=== PATIENT | male | born 1995 | race Caucasian/White ===

== ENCOUNTER 2017-10-05 06:47 | Emergency (ER) | payer OTHER ==
[2017-10-05 06:54] VITALS: O2SAT 98
[2017-10-05] MEDS ORDERED: ONDANSETRON 4 MG/2 ML VIAL IVP ONE (07:10)
[2017-10-05] MEDS ORDERED: PANTOPRAZOLE SODIUM 40 MG VIAL IVP ONE (07:10)
[2017-10-05] MEDS ORDERED: NS 1,000 ML IV ONE (07:10)
[2017-10-05] MEDS ORDERED: ONDANSETRON 4 MG/2 ML VIAL ONE (07:10)
--- NOTE | 2017-10-05 07:13 | EDPHY ---
H & P Stated Complaint: N/V, abd pain, black stool. Time Seen by Provider: 10/05/17 07:06 HPI/ROS: Chief Complaint: Nausea, vomiting, abdominal pain HPI: 22-year-old male presenting with 2-3 days of nausea, vague, upper abdominal pain. Patient states he had a very dark bowel movement this morning. Had a his similar symptoms the last 6 or 7 years. Has never seen a doctor for this before. Has been taking Pepto-Bismol without relief. No coffee grounds or blood in his vomit. Symptoms comes in waves. No fever chills. No chest pain or shortness of breath. Is about a 8/10 at worst. There are no aggravating or alleviating factors. He does smoke. Recently stops drinking, does use marijuana daily. ROS: 10 point Review of Systems is negative except as noted in the HPI. PMH: Denies Social History: No smoking, occasional alcohol, daily marijuana Family History: non-contributory Physical Exam: Gen: Awake, Alert, No Distress HEENT: Nose: no rhinorrhea Eyes: PERRLA, EOMI Mouth: Moist mucosa Neck: Supple, no JVD Chest: nontender, lungs clear to auscultation Heart: S1, S2 normal, no murmur Abd: Soft, moderate epigastric tenderness, no guarding Back: no CVA tenderness, no midline tenderness Ext: no edema, non-tender Skin: no rash Neuro: CN II-XII intact, Sensation grossly intact, Strength 5/5 in bilateral upper and lower extremities - Personal History Current Tetanus/Diphtheria Vaccine: Unsure Current Tetanus Diphtheria and Acellular Pertussis (TDAP): Unsure - Medical/Surgical History Hx Asthma: No Hx Chronic Respiratory Disease: No Hx Diabetes: No Hx Cardiac Disease: No Hx Renal Disease: No Hx Cirrhosis: No Hx Alcoholism: No Hx HIV/AIDS: No Hx Splenectomy or Spleen Trauma: No Other PMH: Denies - Social History Smoking Status: Never smoked Constitutional: Initial Vital Signs Temperature (C) 36.6 C 10/05/17 06:50 Heart Rate 85 10/05/17 06:50 Respiratory Rate 17 10/05/17 06:50 Blood Pressure 147/93 H 10/05/17 06:50 O2 Sat (%) 98 10/05/17 06:50 O2 Delivery Mode Room Air Allergies/Adverse Reactions: No Known Allergies Allergy (Unverified 10/05/17 06:54) Home Medications: Medication Instructions Recorded NK [No Known Home Meds] 10/05/17 Medical Decision Making ED Course/Re-evaluation: Patient is improved after Protonix, ondansetron, Haldol and a GI cocktail. I suspect that his symptoms are secondary to cannabinoid hyperemesis. We have had this discussion and the patient is actually open to this as a possibility. He states that he will try to avoid alcohol and cannabis for a few weeks to see if that helps. His H&H are normal. I do not think that he is having a GI bleed. His BUN is normal. I think his dark stools or secondary to his Pepto- Bismol use. Will send him home with Deonna vincent. He will follow up with primary care when he returns to [place] this week. - Data Points Laboratory Results: Laboratory Results 10/05/17 07:20 10/05/17 07:20 10/05/17 10/05/17 07:20 07:20 WBC 7.54 10^3/uL 10^3/uL (3.80-9.50) RBC 5.11 10^6/uL 10^6/uL (4.40-6.38) Hgb 15.9 g/dL g/dL (13.7-17.5) Hct 44.4 % % (40.0-51.0) MCV 86.9 fL fL (81.5-99.8) MCH 31.1 pg pg (27.9-34.1) MCHC 35.8 g/dL g/dL (32.4-36.7) RDW 11.7 % % (11.5-15.2) Plt Count 254 10^3/uL 10^3/uL (150-400) MPV 9.6 fL fL (8.7-11.7) Neut % (Auto) 66.6 % % (39.3-74.2) Lymph % (Auto) 23.2 % % (15.0-45.0) [place] % (Auto) 9.5 % % (4.5-13.0) Eos % (Auto) 0.1 % L % (0.6-7.6) Baso % (Auto) 0.3 % % (0.3-1.7) Nucleat RBC Rel Count 0.0 % % (0.0-0.2) Absolute Neuts (auto) 5.02 10^3/uL 10^3/uL (1.70-6.50) Absolute Lymphs (auto) 1.75 10^3/uL 10^3/uL (1.00-3.00) Absolute Monos (auto) 0.72 10^3/uL 10^3/uL (0.30-0.80) Absolute Eos (auto) 0.01 10^3/uL L 10^3/uL (0.03-0.40) Absolute Basos (auto) 0.02 10^3/uL 10^3/uL (0.02-0.10) Absolute Nucleated RBC 0.00 10^3/uL 10^3/uL (0-0.01) Immature Gran % 0.3 % % (0.0-1.1) Immature Gran # 0.02 10^3/uL 10^3/uL (0.00-0.10) Sodium 139 mEq/L mEq/L (135-145) Potassium 3.4 mEq/L L mEq/L (3.5-5.2) Chloride 99 mEq/L mEq/L (97-110) Carbon Dioxide 24 mEq/l mEq/l (22-31) Anion Gap 16 mEq/L mEq/L (8-16) BUN 13 mg/dL mg/dL (7-23) Creatinine 0.8 mg/dL mg/dL (0.7-1.3) Estimated GFR > 60 Glucose 120 mg/dL H mg/dL (70-100) Calcium 9.8 mg/dL mg/dL (8.5-10.4) Total Bilirubin 1.0 mg/dL mg/dL (0.1-1.4) AST 29 IU/L IU/L (17-59) ALT 60 IU/L IU/L (21-72) Alkaline Phosphatase 90 IU/L IU/L (38-126) Total Protein 7.7 g/dL g/dL (6.3-8.2) Albumin 4.8 g/dL g/dL (3.5-5.0) Lipase 41 IU/L IU/L (23-300) Medications Given: Discontinued Medications Al Hydroxide/Mg Hydroxide (Maalox Susp) 30 ml PO ONCE ONE Stop: 10/05/17 07:48 Last Admin: 10/05/17 07:52 Dose: 30 ml Haloperidol Lactate (Haldol Injection) 2.5 mg IVP EDNOW ONE Stop: 10/05/17 07:48 Last Admin: 10/05/17 07:55 Dose: 2.5 mg Sodium Chloride (Ns) 1,000 mls @ 0 mls/hr IV ONCE ONE; Wide Open PRN Reason: Protocol Stop: 10/05/17 07:11 Last Admin: 10/05/17 07:17 Dose: 1,000 mls Lidocaine (Lidocaine 2% Viscous) 15 ml PO ONCE ONE Stop: 10/05/17 07:48 Last Admin: 10/05/17 07:52 Dose: 15 ml Ondansetron HCl (Zofran) 4 mg IVP EDNOW ONE Stop: 10/05/17 07:11 Last Admin: 10/05/17 07:18 Dose: 4 mg Ondansetron HCl (Zofran Odt 4 Mg Prepack#2) 1 btl TAKEHOME EDNOW ONE Stop: 10/05/17 08:51 Last Admin: 10/05/17 09:10 Dose: 1 btl Pantoprazole Sodium (Protonix) 80 mg IVP EDNOW ONE Stop: 10/05/17 07:11 Last Admin: 10/05/17 07:22 Dose: 80 mg Departure - Departure Disposition: Home, Routine, Self-Care Clinical Impression: Abdominal pain, Nausea & vomiting Condition: Good Instructions: Ondansetron (By mouth), Acute Nausea and Vomiting (ED), Abdominal Pain (ED) Additional Instructions: You may take Zofran as needed for nausea and vomiting. Follow up with a primary care physician when she returns to [place] later this week. Return to the emergency department for increasing abdominal pain, uncontrolled nausea vomiting, or any other concerns. Referrals: NONE *PRIMARY CARE P,. [Primary Care Provider] - As per Instructions
[2017-10-05 07:25] LABS: PLATELET COUNT 254 10^3/uL (150-400)
[2017-10-05] MEDS ORDERED: MAG HYDROX/AL HYDROX/SIMETH 30 ML UDCUP PO ONE (07:47)
[2017-10-05] MEDS ORDERED: LIDOCAINE 2% VISCOUS 15 ML UDCUP PO ONE (07:47)
[2017-10-05] MEDS ORDERED: HALOPERIDOL LACT 5 MG/ML INJ IVP ONE (07:47)
[2017-10-05] MEDS ORDERED: HYOSCYAMINE SULFATE 0.125 MG TAB ONE (07:48)
[2017-10-05] MEDS ORDERED: HALOPERIDOL LACT 5 MG/ML INJ ONE (07:48)
[2017-10-05] MEDS ORDERED: MAG HYDROX/AL HYDROX/SIMETH 30 ML UDCUP ONE (07:48)
[2017-10-05] MEDS ORDERED: LIDOCAINE 2% VISCOUS 15 ML UDCUP ONE (07:49)
[2017-10-05] MEDS ORDERED: ONDANSETRON 4MG PREPACK#2 BTL TAKEHOME ONE (08:50)
[2017-10-05 09:15] VITALS: BP 142/82; PULSE 65; RESP 16; TEMP 98.8
== END 2017-10-05 09:15 | disposition home or self-care (01) ==
DX: R10.13 Epigastric pain (principal); R11.2 Nausea with vomiting, unspecified; E86.9 Volume depletion, unspecified
CPT/HCPCS: 96374; J1630; J2405